=== PATIENT | male | born 1980 | race Caucasian/White ===

== ENCOUNTER 2019-03-17 12:00 | Emergency (ER) | payer OTHER, SELFPAY ==
[2019-03-17 12:02] VITALS: BP 145/65; PULSE 101; RESP 17; TEMP 36.7; O2SAT 98; BMI 31.6
--- NOTE | 2019-03-17 14:03 | ED.DCSUM_ITS ---
- ER Visit Summary Date of Service: 03/17/19 Chief Complaint: Abdominal pain History of Present Illness: The patient is a 39 M presenting with abdominal pain. He states he has had intermittent episodes similar to this since November. This episode started last night. He does not recall any change with food. He had 3 episodes of vomiting today. He has had diarrhea intermittently since this started. Denies fever. Denies chest pain or shortness of breath. Denies urinary complaints. He has not tried any medications. He has an appointment with his primary care physician on March 28. Physical Examination: Vitals are stable. Patient is afebrile. Alert no acute distress. HEENT exam is unremarkable. Neck is supple. Lungs are clear and equal bilaterally. Heart is regular rate and rhythm. Abdomen is soft mild epigastric tenderness with no guarding or rebound Extremities are unremarkable. Skin is warm and dry. Remainder of exam is unremarkable. Emergency Department Course and Treatment: Patient given IV fluids, Zofran, GI cocktail. CBC, chemistries unremarkable. Liver lipase are normal. On reevaluation, patient is resting comfortably. He is advised to follow-up with his PCP as scheduled. Advised to follow-up with GI and given prescription for Zofran and Pepcid. Advised return to ED for worsening complaints. Disposition: Discharge home Impression: Abdominal pain This note was generated with [employer] dictation software. It may contain incorrect words, spelling, and punctuation that were not noted in review of the chart prior to signing ED Disposition - Plan for ED Patient: Instructions: ABDOMINAL PAIN, Unknown Cause, (Female) Prescriptions: Famotidine [Pepcid] 20 mg PO BID #28 tab Prescription Printed Referrals: Stephane Camargo [Primary Care Provider] - Lucas Reyna MD [NON-STAFF] -
[2019-03-17 14:14] LABS: Absolute Lymphocyte Count 1.91 X10^3/uL (0.83-4.51); Basophil# 0.04 X10^3/uL; Basophil% 0.4 % (0-1); Eosinophil# 0.24 X10^3/uL; Eosinophils% 2.4 % (0-5); Hematocrit 48.7 % (40-54); Hemoglobin 16.2 g/dL (13.0-16.5); Lymphocyte # 1.91 X10^3/ul (4.0); Lymphocyte % 19.2 % (19-41); Mean Corp Hgb Conc 33.3 g/dL (32-36); Mean Platelet Vol. 10.5 fl (6.2-12.0); Monocyte# 0.73 X10^3/uL; Monocyte% 7.3 % (0-10); NRBC Flagged by Analyzer 0 % (0-5); Neutrophil # 6.97 X10^3/uL (2.7-7.7); Neutrophil % 70.2 % (47-70); Platelet Count 211 K/mm3 (150-450); RBC Distribution Width CV 13.8 % (11.6-14.6); Red Blood Count 6.01 M/mm3 (4.6-6.2); White Blood Count 9.9 K/mm3 (4.4-11.0)
[2019-03-17] MEDS: 0.9% Normal Saline 1,000 ML 999 ML IV (14:15)
[2019-03-17] MEDS: Mag Hydrox/Al Hydrox/Simeth 30 ML UDC PO (14:16)
[2019-03-17 14:17] VITALS: RESP 16
[2019-03-17] MEDS: Ondansetron 4 MG/2 ML Vial IV (14:17)
[2019-03-17 14:29] LABS: AST(SGOT) 21 U/L (15-37); Alanine Aminotransfer ALT/SGPT 47 U/L (16-61); Albumin, Serum 4.2 g/dL (3.2-5.0); Alkaline Phosphatase 70 U/L (45-117); Anion Gap 5 (5-15); BUN 17 mg/dL (7-18); BUN/Creat Ratio 18.8 RATIO (10-20); Bilirubin, Direct 0.05 mg/dL (0.00-0.30); Calcium,Total 8.3 mg/dL (8.5-10.1); Chloride 110 mmol/L (98-107); EST Glomerular Filtration Rate 100 mL/min (>60); Est Glom Filt Rate - Afr Amer 121 mL/min (>60); Estimated Creatinine Clearance 101.41 ml/min; Glucose 89 mg/dL (74-106); Lipase 72 U/L (73-393); Protein, Total 8.2 g/dL (6.4-8.2); Sodium Level 139 mmol/L (136-145)
--- NOTE | 2019-03-17 14:58 | ED.DEP ---
ED Disposition - Plan for ED Patient: Instructions: ABDOMINAL PAIN, Unknown Cause, (Female) Prescriptions: Famotidine [Pepcid] 20 mg PO BID #28 tablet Referrals: Stephane Camargo [Primary Care Provider] - Lucas Reyna MD [NON-STAFF] -
--- NOTE | 2019-03-17 15:07 | ED.DEP ---
ED Disposition - Plan for ED Patient: Instructions: ABDOMINAL PAIN, Unknown Cause, (Female) Prescriptions: Famotidine [Pepcid] 20 mg PO BID #28 tab Prescription Printed Ondansetron [Zofran Odt] 4 mg PO Q8H PRN PRN #10 tablet PRN Reason: Nausea Referrals: Stephane Camargo [Primary Care Provider] - Lucas Reyna MD [NON-STAFF] -
--- NOTE | 2019-03-17 15:18 | CT_ITS ---
STUDY: CT ABDOMEN AND PELVIS WITHOUT CONTRAST REASON FOR EXAM: Male, 39 years old. N/V/D BLOATING,ABD PAIN RADIATION DOSAGE (If Supplied By Facility): CTDIvol = ( 10.54 ) mGy, DLP = ( 571.52 ) mGycm TECHNIQUE: Transaxial images were obtained from the dome of the diaphragm to the symphysis pubis without oral contrast, and without intravenous contrast. Sagittal and coronal images were reconstructed. Individualized dose optimization techniques were used for this CT. COMPARISON: None. FINDINGS: Multi focal small platelike areas of atelectasis or chronic change at the lung bases. The visualized portions of the heart are within normal limits. Normal liver. Normal gallbladder and extrahepatic biliary system. Normal spleen. Normal pancreas. Normal bilateral adrenal glands. Normal right kidney. Normal left kidney. Food filled stomach. Mildly dilated/hypotonic small bowel with increase gas in nondependent loops. Increased colonic bowel gas in nondependent loops with liquid stool without wall thickening or pericolonic edema. The appendix is visualized and appears normal. Few shotty mesenteric lymph nodes. Normal abdominal aorta. Normal inferior vena cava. Incidental retroaortic left renal vein. Normal urinary bladder. Small fatty left inguinal hernia. Bilateral chronic pars interarticularis defect at L5 without spondylolisthesis. CT/Abdomen/Pelvis without Cont IMPRESSION: Negative for evidence of obstruction, perforation or inflammatory bowel changes. Normal appendix. Mildly dilated and/or hypotonic small bowel. Increased intestinal bowel gas in nondependent loops and excess liquid stool. Findings are nonspecific; however, commonly associated with gastroenteritis/enteritis in an acute setting. Normal kidneys bilaterally and an unremarkable urinary bladder. Normal liver, spleen and pancreas with a nondistended gallbladder. Small fatty left inguinal hernia. Bilateral chronic pars interarticularis defect at L5 without spondylolisthesis Electronically Signed: Yasemin Hanley MD at 16:07 EST , Service support ,
[2019-03-17] MEDS: Morphine 4 MG/ML Syringe IV (15:54)
[2019-03-17 16:20] VITALS: BP 123/76; PULSE 81; RESP 16; O2SAT 97
[2019-03-17 16:48] VITALS: BP 117/71; PULSE 80; RESP 16; O2SAT 98
== END 2019-03-17 16:55 | disposition home or self-care (01) ==
LOC: ED 13:51
PROVIDERS: Emergency Provider Emergency Medicine; Family Provider Family Medicine; PCP Family Medicine
DX: R10.9 Unspecified abdominal pain (principal); R11.2 Nausea with vomiting, unspecified; R19.7 Diarrhea, unspecified
CPT/HCPCS: 74176; 80048; 80076; 83690; 85025; 96361; 96374; 96375; 99284; J7030; A4216; J2405

== ENCOUNTER → 2023-01-19 | Outpatient (CLI) | payer BC, SELFPAY ==
--- NOTE | 2023-01-19 08:38 | RAD_ITS ---
STUDY: X-RAY - ESOPHAGUS (BARIUM SWALLOW) WITH FLUOROSCOPY REASON FOR EXAM: Male, 43 years old. Gastro-esophageal reflux disease without esophagitis TECHNIQUE: 14 view(s) of the esophagus were obtained following swallowing of barium. FLUOROSCOPY TIME (if supplied): (34 seconds) minutes/seconds COMPARISON: None. FINDINGS: There is no demonstrated esophageal foreign body. Small but is seen at the gastroesophageal junction. Normal gastroesophageal junction, without a demonstrated hiatal hernia. The patient ingested 12 mm tablet of barium without any difficulty. Normal visualized aortic arch and descending thoracic aorta. Normal visualized pulmonary parenchyma. Normal visualized osseous structures of the thorax. RAD/Esophagus Dual Contrast IMPRESSION: Small mucosal web is seen at the gastroesophageal junction without obstruction. The patient swallowed a 12 mm tablet of barium without any difficulty. Electronically Signed: Yevgeniy Pagan MD at 9:43 EST ,
== END | disposition home or self-care (01) ==
PROVIDERS: PCP Family Medicine; Referring Provider Otolaryngology; Visit Provider Otolaryngology
DX: K21.9 Gastro-esophageal reflux disease without esophagitis (principal)
CPT/HCPCS: 74221